=== PATIENT | female | born 1965 | race American Indian/Alaskan Native ===

== ENCOUNTER 2019-03-13 17:47 | Emergency (ER) | payer SELFPAY ==
--- NOTE | 2019-03-13 17:53 | Emergency Department Report ---
ED CPR HPI - General Chief Complaint: Cardiac Arrest/CPR Stated Complaint: CARDIAC ARREST Time Seen by Provider: 03/13/19 17:49 Source: EMS (verbal report received from emergency medical services.EMS documentation not available at this time.) Mode of arrival: Stretcher Limitations: Altered Mental Status, Physical Limitation - History of Present Illness Initial Comments: Patient is a 53-year-old -[place] female, brought to the hospital by emergency medical services as an out of hospital cardiac arrest. Patient has a cervical collar in place, endotracheal tube in place placed by EMS, and is actively receiving CPR. EMS received call for what appeared to be a possible seizure. Upon arrival, patient was pulseless shockable rhythm. Patient shocked 3, given amiodarone 1, received epinephrine, aggressive chest compressions, and endotracheal intubation. EMS states that patient's rhythm upon arrival is pea to the emergency room. Patient has been in a pulseless non shockable rhythm for at least 5-10 minutes as per EMS. Upon arrival to the emergency room, patient is pulseless, pupils are dilated and do not react to light, and she does not have a shockable rhythm. Standard ACLS interventions are performed. Unfortunately, on serial bedside examinations, no pulses are obtained, and a bedside transthoracic echocardiogram shows no corneal ventricular activity, and cardiac standstill. In spite of aggressive medical resuscitation, and aggressive CPR, and aggressive ACLS interventions, pulses cannot be reobtained. Resuscitation efforts are subsequently terminated. MD Complaint: other Place: work Treatments Prior to Arrival: intubation, chest compressions, defribrillated shocks #, epinephrine mgs #, other ED Review of Systems ROS: Stated complaint: CARDIAC ARREST Other details as noted in HPI Comment: Unobtainable due to pts medical conditions ED Physical Exam - General Limitations: Altered Mental Status, Physical Limitation General appearance: other (intubated, GCS of 3) - Head Head exam: Present: atraumatic - Eye Eye exam: Present: normal appearance (pupils dilated and do not react to light) - ENT ENT exam: Present: normal exam (endotracheal tube noted in the oropharynx) - Neck Neck exam: Present: other (cervical collar in place) - Respiratory Respiratory exam: Present: other (anterior chest wall ecchymosis noted, consistent with receiving CPR no breath sounds appreciated) - Cardiovascular Cardiovascular Exam: Absent: regular rate (patient is pulseless) - GI/Abdominal GI/Abdominal exam: Present: soft - Extremities Exam Extremities exam: Present: normal inspection (no pulses) - Back Exam Back exam: Present: normal inspection - Neurological Exam Neurological exam: Present: other (GCS 3T) - Psychiatric Psychiatric exam: Present: other (nonverbal) - Skin Skin exam: Present: dry ED Medical Decision Making - Medical Decision Making Differential diagnosis, including not limited to: Acute coronary syndrome, bacteremia, pulmonary embolism, intracranial hemorrhage status epilepticus Critical care attestation.: If time is entered above; I have spent that time in minutes in the direct care of this critically ill patient, excluding procedure time. ED Disposition Clinical Impression: Cardiac arrest Disposition: DC-20 Is pt being admited?: No Does the pt Need Aspirin: No Condition: Undetermined
== END 2019-03-13 20:14 ==
LOC: ED 17:47
DX: I50.9 Heart failure, unspecified (principal)
CPT/HCPCS: 31500; 92950